=== PATIENT | female | born 1970 | race Caucasian/White ===

== ENCOUNTER 2018-10-08 08:47 | Emergency (ER) | payer BC, OTHER ==
[2018-10-08] MEDS ORDERED: Sodium Chloride 0.9% 1000 ML 1,000 ML IV STA (09:03)
[2018-10-08] MEDS ORDERED: Zofran 4 MG/2 ML VIAL IV ONE (09:03)
[2018-10-08] MEDS ORDERED: TORAdol 30 mg Injection IV ONE (09:03)
--- NOTE | 2018-10-08 09:09 | ERPHSYRPT ---
- History of Present Illness Time Seen by Provider: 10/08/18 08:57 Historian: patient Exam Limitations: no limitations Physician History: Pt started c/o LUQ abdominal pain, nausea, vomiting, and diarrhea. She denies fever, chills, bloody or black stool, or vomiting blood. She has a history of kidney stones. Timing/Duration: day(s) (4) Activities at Onset: none Quality: cramping, sharpness Abdominal Pain Onset Location: LUQ Pain Radiation: flank (left) Severity of Pain-Max: severe Severity of Pain-Current: severe Modifying Factors: Improves With: nothing Associated Symptoms: diarrhea, nausea, vomiting Previous symptoms: same symptoms as today Allergies/Adverse Reactions: codeine [Codeine] Allergy (Mild, Verified 10/08/18 12:00) Home Medications: Fluoxetine HCl [Prozac] DAILY 03/20/12 [History] Hydrocodone Bit/Acetaminophen [Vicodin Es 7.5-750 mg Tablet] TIDPRN 03/20/12 [ History] Lamotrigine [Lamictal] DAILY 03/20/12 [History] Levothyroxine Sodium 100 Mcg [Synthroid 100 Mcg] DAILY 03/20/12 [History] Hx Tetanus, Diphtheria Vaccination/Date Given: No Hx Influenza Vaccination/Date Given: No Hx Pneumococcal Vaccination/Date Given: No - Review of Systems Constitutional: No Symptoms Ears, Nose, & Throat: No Symptoms Respiratory: No Symptoms Cardiac: No Symptoms Genitourinary Symptoms: Flank Pain Musculoskeletal: No Symptoms Skin: No Symptoms Neurological: No Symptoms All Other Systems: Reviewed and Negative - Past Medical History Pertinent Past Medical History: Yes Endocrine Medical History: Hypothyroidism Musculoskeletal History: Other Psycho-Social History: Bipolar, Depression - Past Surgical History Past Surgical History: Yes Female Surgical History: Tubal Ligation - Social History Smoking Status: Current every day smoker Exposure to second hand smoke: Yes Drug Use: none Patient Lives Alone: No - Female History Hx Now: No - Nursing Vital Signs Nursing Vital Signs: Initial Vital Signs Temperature 102.7 F 10/08/18 09:04 Pulse Rate 118 H 10/08/18 09:04 Respiratory Rate 18 10/08/18 09:04 Blood Pressure 146/72 10/08/18 09:04 O2 Sat by Pulse Oximetry 99 10/08/18 09:04 Pain Scale Pain Intensity 0 - Physical Exam General Appearance: no apparent distress Eye Exam: eyes nml inspection Ears, Nose, Throat Exam: normal ENT inspection Neck Exam: normal inspection, non-tender Respiratory Exam: normal breath sounds, lungs clear Cardiovascular Exam: regular rate/rhythm, normal heart sounds, normal peripheral pulses Gastrointestinal/Abdomen Exam: soft, normal bowel sounds, tenderness (LUQ), No distention, No mass, No guarding, No ecchymosis, No pulsatile mass, No rebound, No organomegaly Back Exam: normal inspection, CVA tenderness (left), No vertebral tenderness Extremity Exam: normal inspection Neurologic Exam: alert, oriented x 3 Skin Exam: normal color, warm, dry, No rash SpO2 Interpretation: normal O2 Delivery: Room Air - Course Nursing assessment & vital signs reviewed: Yes - CT Exams Abdomen/Pelvis CT Interpretation: Tele-radiologist Report, Other (Enlargement of the left kidney with prominent left perinephric stranding, 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 with mild ureterectasisand suspected element of obstruction with no calculus distally.) Ordered Tests: Active Orders 24 hr Category Date Time Status IV Insertion STAT Care 10/08/18 09:03 Active ABDOMEN AND PELVIS W/0 CONTRAS [CT] Stat Exams 10/08/18 09:04 Taken CBC W DIFF Stat Lab 10/08/18 09:20 Completed CMP Stat Lab 10/08/18 09:20 Completed CULTURE,URINE Stat Lab 10/08/18 09:42 Received HCG,QUALITATIVE URINE Stat Lab 10/08/18 09:42 Completed LIPASE Stat Lab 10/08/18 09:20 Completed Lactic Acid Stat Lab 10/08/18 12:01 Completed Manual Differential NC Stat Lab 10/08/18 09:20 Completed UA W/RFX UR CULTURE Stat Lab 10/08/18 09:42 Completed Medication Summary Discontinued Medications Generic Name Dose Route Start Last Admin Trade Name Freq PRN Reason Stop Dose Admin Acetaminophen 1,000 mg 10/08/18 12:03 10/08/18 12:09 Tylenol Extra Strength 500 Mg PO 10/08/18 12:04 1,000 mg STAT STA Administration Acetaminophen Confirm 10/08/18 12:06 Tylenol Extra Strength 500 Mg Administered 10/08/18 12:07 Dose 1,000 mg .ROUTE .STK-MED ONE Sodium Chloride 1,000 mls @ 999 mls/hr 10/08/18 09:03 10/08/18 10:52 Sodium Chloride 0.9% 1000 Ml IV 10/08/18 10:03 Infused .Q1H1M STA Infusion Sodium Chloride Confirm 10/08/18 09:30 Sodium Chloride 0.9% 1000 Ml Administered 10/08/18 09:31 Dose 1,000 mls @ ud .ROUTE .STK-MED ONE Ceftriaxone Sodium/Dextrose 1 g in 50 mls @ 100 mls/hr 10/08/18 12:00 12:47 Rocephin 1 Gm-D5w 50 Ml Bag IV 10/08/18 12:29 Infused STAT STA Infusion Ceftriaxone Sodium/Dextrose Confirm 10/08/18 12:06 Rocephin 1 Gm-D5w 50 Ml Bag Administered 10/08/18 12:07 Dose 1 g in 50 mls @ ud IV .STK-MED ONE Ketorolac Tromethamine 30 mg 10/08/18 09:03 10/08/18 09:42 Toradol 30 Mg Injection IV 10/08/18 09:04 30 mg STAT ONE Administration Ketorolac Tromethamine Confirm 10/08/18 09:29 Toradol 30 Mg Injection Administered 10/08/18 09:30 Dose 30 mg .ROUTE .STK-MED ONE Ondansetron HCl 4 mg 10/08/18 09:03 10/08/18 09:42 Zofran 4 Mg/2 Ml Vial IV 10/08/18 09:04 4 mg STAT ONE Administration Ondansetron HCl Confirm 10/08/18 09:29 Zofran 4 Mg/2 Ml Vial Administered 10/08/18 09:30 Dose 4 mg .ROUTE .STK-MED ONE Lab/Rad Data: Laboratory Result Diagrams 10/08/18 09:20 10/08/18 09:20 Laboratory Results 10/08/18 10/08/18 10/08/18 Range/Units 12:01 09:42 09:42 WBC (4.0-10.5) K/mm3 RBC (4.1-5.4) M/mm3 Hgb (12.0-16.0) gm/dl Hct (35-47) % MCV (78-100) fl MCH (26-32) pg MCHC (32-36) g/dl RDW (11.5-14.0) % Plt Count (150-450) K/mm3 MPV (6-9.5) fl Segmented Neutrophils (36.0-66.0) % Lymphocytes (Manual) (24-44) % Monocytes (Manual) (0.0-12.0) % Eosinophils (Manual) (0.00-3.0) % Platelet Estimate (NORMAL) RBC Morphology Sodium (137-145) mmol/L Potassium (3.5-5.1) mmol/L Chloride (98-107) mmol/L Carbon Dioxide (22-30) mmol/L Anion Gap (5-15) MEQ/L BUN (7-17) mg/dL Creatinine (0.52-1.04) mg/dL Estimated GFR ML/MIN Glucose (74-106) mg/dL Lactic Acid 1.6 (0.4-2.0) Calcium (8.4-10.2) mg/dL Total Bilirubin (0.2-1.3) mg/dL AST (14-36) U/L ALT (0-35) U/L Alkaline Phosphatase (38-126) U/L Serum Total Protein (6.3-8.2) g/dL Albumin (3.5-5.0) g/dL Lipase (23-300) U/L Urine Color CURT (YELLOW) Urine Appearance CLOUDY (CLEAR) Urine pH 5.0 (5-6) Ur Specific [place] 1.013 (1.005-1.025) Urine Protein 100 (Negative) Urine Ketones NEGATIVE (NEGATIVE) Urine Blood MODERATE (0-5) Jason/ul Urine Nitrite NEGATIVE (NEGATIVE) Urine Bilirubin NEGATIVE (NEGATIVE) Urine Urobilinogen 2 (0-1) mg/dL Ur Leukocyte Esterase MODERATE (NEGATIVE) Urine WBC (Auto) >100 (0-5) /HPF Urine RBC (Auto) 11-15 (0-2) /HPF U Epithel Cells (Auto) RARE (FEW) /HPF Urine Bacteria (Auto) NONE (NEGATIVE) /HPF Urine Mucus (Auto) SLIGHT (NEGATIVE) /HPF Urine Culture Reflexed YES (NO) Urine Glucose NEGATIVE (NEGATIVE) mg/dL Urine HCG, Qual NEGATIVE (Negative) 10/08/18 10/08/18 Range/Units 09:20 09:20 WBC 15.9 H (4.0-10.5) K/mm3 RBC 4.55 (4.1-5.4) M/mm3 Hgb 12.9 (12.0-16.0) gm/dl Hct 39.1 (35-47) % MCV 85.9 (78-100) fl MCH 28.4 (26-32) pg MCHC 33.0 (32-36) g/dl RDW 13.2 (11.5-14.0) % Plt Count 323 (150-450) K/mm3 MPV 9.8 H (6-9.5) fl Segmented Neutrophils 65 (36.0-66.0) % Lymphocytes (Manual) 25 (24-44) % Monocytes (Manual) 9 (0.0-12.0) % Eosinophils (Manual) 1 (0.00-3.0) % Platelet Estimate NORMAL (NORMAL) RBC Morphology NORMAL Sodium 137 (137-145) mmol/L Potassium 3.6 (3.5-5.1) mmol/L Chloride 103 (98-107) mmol/L Carbon Dioxide 23 (22-30) mmol/L Anion Gap 14.5 (5-15) MEQ/L BUN 14 (7-17) mg/dL Creatinine 0.83 (0.52-1.04) mg/dL Estimated GFR > 60.0 ML/MIN Glucose 109 H (74-106) mg/dL Lactic Acid (0.4-2.0) Calcium 9.5 (8.4-10.2) mg/dL Total Bilirubin 1.10 (0.2-1.3) mg/dL AST 37 H (14-36) U/L ALT 44 H (0-35) U/L Alkaline Phosphatase 139 H (38-126) U/L Serum Total Protein 8.2 (6.3-8.2) g/dL Albumin 4.3 (3.5-5.0) g/dL Lipase 33 (23-300) U/L Urine Color (YELLOW) Urine Appearance (CLEAR) Urine pH (5-6) Ur Specific [place] (1.005-1.025) Urine Protein (Negative) Urine Ketones (NEGATIVE) Urine Blood (0-5) Jason/ul Urine Nitrite (NEGATIVE) Urine Bilirubin (NEGATIVE) Urine Urobilinogen (0-1) mg/dL Ur Leukocyte Esterase (NEGATIVE) Urine WBC (Auto) (0-5) /HPF Urine RBC (Auto) (0-2) /HPF U Epithel Cells (Auto) (FEW) /HPF Urine Bacteria (Auto) (NEGATIVE) /HPF Urine Mucus (Auto) (NEGATIVE) /HPF Urine Culture Reflexed (NO) Urine Glucose (NEGATIVE) mg/dL Urine HCG, Qual (Negative) - Progress Progress: improved Progress Note: 10/08/18 12:24 Pt states, she feels much better, nausea and pain resolved, temp: 100.8 F, she was given saline bolus, and started on iv Rocephine, PO Tylenol, we called Dr Prince, Urologist in [place], discussed her findings and current condition with him, he agreed to discharge her home, and start Keflex PO, to rest x 2-3 days, and drink plenty of fluids, and follow up with him next week. Counseled pt/family regarding: lab results, diagnosis, need for follow-up (with Dr Prince, Urologist) - Departure Departure Disposition: Home Clinical Impression: Pyelonephritis Condition: Stable Critical Care Time: No Referrals: JAZMIN AYALA FNP [Primary Care Provider] - Instructions: Urinary Tract Infection, Adult (DC), Kidney Infection (DC) Additional Instructions: Rest x 2-3 days, drink plenty of fluids, and follow up with Dr Prince, Urologist next week in [place] (tel: [phone])m return if severe pain, vomiting, or fever> 102 F! Prescriptions: Ondansetron ODT 4 MG [Zofran Odt 4 mg] 4 mg PO Q6H PRN PRN #10 tab.rapdis PRN Reason: Nausea/Vomiting Cephalexin Mh 500 mg [Keflex 500 mg] 500 mg PO Q6H 7 Days #28 capsule
[2018-10-08 09:27] LABS: Hematocrit 39.1 % (35-47); Hemoglobin 12.9 gm/dl (12.0-16.0); Mean Cell Volume 85.9 fl (78-100); Mean Corpuscular Hemoglobin 28.4 pg (26-32); Mean Platelet Volume 9.8 fl (6-9.5); Platelet Count 323 K/mm3 (150-450); Red Blood Count 4.55 M/mm3 (4.1-5.4); Red Cell Distribution Width 13.2 % (11.5-14.0); White Blood Count 15.9 K/mm3 (4.0-10.5)
[2018-10-08] MEDS ORDERED: Zofran 4 MG/2 ML VIAL ONE (09:29)
[2018-10-08] MEDS ORDERED: TORAdol 30 mg Injection ONE (09:29)
[2018-10-08] MEDS ORDERED: Sodium Chloride 0.9% 1000 ML 1,000 ML ONE (09:30)
[2018-10-08 09:38] LABS: ALBUMIN 4.3 g/dL (3.5-5.0); ALKALINE PHOSPHATASE 139 U/L (38-126); ANION GAP 14.5 MEQ/L (5-15); BLOOD UREA NITROGEN 14 mg/dL (7-17); CHLORIDE 103 mmol/L (98-107); Calcium 9.5 mg/dL (8.4-10.2); Carbon Dioxide 23 mmol/L (22-30); Creatinine 1 0.83 mg/dL (0.52-1.04); Glucose 109 mg/dL (74-106); LIPASE 33 U/L (23-300); Potassium 3.6 mmol/L (3.5-5.1); SGOT/AST 37 U/L (14-36); SGPT/ALT 44 U/L (0-35); SODIUM 137 mmol/L (137-145); Total Protein 8.2 g/dL (6.3-8.2)
[2018-10-08 09:51] LABS: Appearance CLOUDY (CLEAR); Bilirubin NEGATIVE (NEGATIVE); Blood MODERATE Ery/ul (0-5); Epithelial Cells RARE /HPF (FEW); Glucose NEGATIVE (NEGATIVE); Ketones NEGATIVE (NEGATIVE); Leukocyte Esterase MODERATE (NEGATIVE); Mucus SLIGHT /HPF (NEGATIVE); Nitrite NEGATIVE (NEGATIVE); Protein,Urine Dip 100 (Negative); Specific Gravity 1.013 (1.005-1.025); Urobilinogen 2 mg/dL (0-1); WBC >100 /HPF (0-5)
[2018-10-08 10:54] VITALS: BP 104/76; O2SAT 98
[2018-10-08 11:10] LABS: Eosinophil 1 % (0.00-3.0); Lymphocytes 25 % (24-44); Monocyte 9 % (0.0-12.0); Neutrophils 65 % (36.0-66.0); Total Cells Counted 100
[2018-10-08 11:11] LABS: Platelet Estimate NORMAL (NORMAL)
[2018-10-08] MEDS ORDERED: ROCEPHIN 1 Gm-D5w 50 ml Bag** 1 G/50 ML IVPB IV STA (12:00)
[2018-10-08] MEDS ORDERED: TYLENOL EXTRA STRENGTH 500 MG PO STA (12:03)
[2018-10-08 12:04] VITALS: PULSE 75
[2018-10-08] MEDS ORDERED: TYLENOL EXTRA STRENGTH 500 MG ONE (12:06)
[2018-10-08] MEDS ORDERED: ROCEPHIN 1 Gm-D5w 50 ml Bag** 1 G/50 ML IVPB IV ONE (12:06)
--- NOTE | 2018-10-08 19:34 | XRAY ---
Indication: Left upper quadrant pain. History kidney stone. Multiple contiguous axial images obtained through the abdomen and pelvis without contrast as ordered. Comparison: None Lung bases demonstrates minimal bibasilar dependent atelectasis. No infiltrate or effusion. Heart is not enlarged. Noncontrasted stomach and bowel loops appear nonobstructed. Normal appendix. Left kidney appears edematous with perinephric stranding and prominent duplicated ureters to the level of the bladder but no calculus. Findings can be seen from recent passage of calculus. Inflammatory/infectious process not completely excluded. No free fluid/air. Remaining liver, gallbladder, pancreas, spleen, adrenal glands, right kidney, right ureter, bladder, uterus, and aorta appear unremarkable for noncontrast exam. Osseous structures intact with minimal degenerative changes throughout the spine. Impression: 1. 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 Rule out recent passage of calculus. Inflammatory/infectious process not completely excluded. 2. Remaining CT abdomen/pelvis without contrast exam is negative. Comment: Preliminary interpretation was made by [facility]. No discrepancy. CTDI 22.02
== END 2018-10-08 12:55 | disposition home or self-care (01) ==
LOC: ED 08:47
DX: N12 Tubulo-interstitial nephritis, not specified as acute or chronic (principal); E03.9 Hypothyroidism, unspecified; F31.9 Bipolar disorder, unspecified
CPT/HCPCS: 36415; 74176; 80053; 81001; 83605; 83690; 84703; 85025; 87077; 87086; 87186; 96360; 96365; 96374; 96375; 99284; J0696; J1885; J2405; A9270-GY

== ENCOUNTER 2020-03-07 11:21 | Emergency (ER) | payer SELFPAY ==
[2020-03-07] MEDS ORDERED: MORPHINE SULFATE 4 MG INJ ONE (11:27)
[2020-03-07 11:28] VITALS: O2SAT 98
--- NOTE | 2020-03-07 11:35 | ERPHSYRPT ---
- History of Present Illness Time Seen by Provider: 03/07/20 11:28 Historian: patient Exam Limitations: no limitations Physician History: Patient is a 49-year-old female presents to our ED via private vehicle for evaluation of right arm pain. Patient states that she was at home when she suddenly turned her head and developed pain radiating down her right arm from her neck down to her fingers.. Patient described the pain as a shock like sensation. Patient has a history of chronic neck pain due to trauma 3 years ago. No chest pain or shortness of breath. No nausea vomiting or diaphoresis. Symptoms are moderate to severe in intensity. Patient has a history of PTSD and anxiety. Patient was very worked up as she thought she was going to . No associated fever. Patient states she vapes marijuana. She denies any other drug use. Patient voices no other complaints or concerns at this time. Timing/Duration: today Activities at Onset: activity Quality: burning Location: other (Arm and back near scapula.) Severity of Pain-Max: severe Severity of Pain-Current: moderate Modifying Factors: Improves With: other (Rotation of patient's head towards the right reproduces symptoms.) Associated Symptoms: nausea, No vomiting, No cough Prior Chest Pain/Cardiac Workup: no prior chest pain Nitro Today/Relief: no nitro taken today Aspirin Treatment Today: 81 mg x 4 Allergies/Adverse Reactions: codeine [Codeine] Allergy (Mild, Verified 03/07/20 11:47) Home Medications: Fluoxetine HCl [Prozac] DAILY 03/20/12 [History] Hydrocodone Bit/Acetaminophen [Vicodin Es 7.5-750 mg Tablet] TIDPRN 03/20/12 [History] Lamotrigine [Lamictal] DAILY 03/20/12 [History] Levothyroxine Sodium 100 Mcg [Synthroid 100 Mcg] DAILY 03/20/12 [History] Hx Tetanus, Diphtheria Vaccination/Date Given: No Hx Influenza Vaccination/Date Given: No Hx Pneumococcal Vaccination/Date Given: No - Review of Systems Constitutional: No Symptoms, No Fever, No Chills Eyes: No Symptoms Ears, Nose, & Throat: No Symptoms Respiratory: No Symptoms, No Cough, No Dyspnea Cardiac: No Symptoms, No Chest Pain, No Edema, No Syncope Abdominal/Gastrointestinal: No Symptoms, No Abdominal Pain, No Nausea, No Vomiting, No Diarrhea Genitourinary Symptoms: No Symptoms, No Dysuria Musculoskeletal: No Symptoms, No Back Pain, No Neck Pain Skin: No Symptoms, No Rash Neurological: No Symptoms, No Dizziness, No Focal Weakness, No Sensory Changes Psychological: No Symptoms Endocrine: No Symptoms Hematologic/Lymphatic: No Symptoms Immunological/Allergic: No Symptoms All Other Systems: Reviewed and Negative - Past Medical History Pertinent Past Medical History: Yes Endocrine Medical History: Hypothyroidism Musculoskeletal History: Other Psycho-Social History: Bipolar, Depression - Past Surgical History Past Surgical History: Yes Female Surgical History: Tubal Ligation - Social History Smoking Status: Current every day smoker Exposure to second hand smoke: Yes Drug Use: none Patient Lives Alone: No - Female History Hx Now: No - Nursing Vital Signs Nursing Vital Signs: Initial Vital Signs Temperature 98.0 F 03/07/20 11:24 Pulse Rate 140 H 03/07/20 11:24 Respiratory Rate 28 H 03/07/20 11:24 Blood Pressure 154/105 03/07/20 11:24 O2 Sat by Pulse Oximetry 98 03/07/20 11:24 Pain Scale Pain Intensity 8 - Physical Exam General Appearance: no apparent distress, alert Eye Exam: PERRL/EOMI, eyes nml inspection Ears, Nose, Throat Exam: normal ENT inspection, moist mucous membranes Neck Exam: normal inspection, non-tender, supple, full range of motion Respiratory Exam: normal breath sounds, lungs clear, No respiratory distress Cardiovascular Exam: regular rate/rhythm, normal heart sounds Gastrointestinal/Abdomen Exam: soft, No tenderness, No mass Back Exam: normal inspection, No CVA tenderness, No vertebral tenderness Extremity Exam: normal inspection, normal range of motion Neurologic Exam: alert, oriented x 3, cooperative, normal mood/affect, sensation nml, No motor deficits Skin Exam: normal color, warm, dry SpO2 Interpretation: normal SpO2: 98 O2 Delivery: Room Air - Course Nursing assessment & vital signs reviewed: Yes EKG Interpreted by Me: RATE ([id number]), Sinus Tach, NORMAL AXIS, NORMAL INTERVALS - Radiology Exams Chest X-ray Interpretation: Teleradiologist Report (No acute cardiopulmonary disease.) - CT Exams Chest CT Interpretation: Tele-radiologist Report (Large PE, small hiatal hernia, calcified granuloma, hepatic steatosis, thoracic spine arthritis) Cervical Spine CT Interpretation: Tele-radiologist Report (No acute cervical spine fracture subluxation or prevertebral soft tissue swelling mild cervical spondylosis is seen there is some neuroforaminal narrowing cervical canal at C5-C6 and C6-C7 appears relatively diminished suggesting some mild central canal stenosis at these levels) Ordered Tests: Active Orders 24 hr Category Date Time Status ACCUCHECK [Accucheck] STAT Care 03/07/20 11:33 Active Electrician Second STAT Care 03/07/20 11:26 Active EKG-ER Only STAT Care 03/07/20 11:24 Active IV Insertion STAT Care 03/07/20 11:24 Active Pulse Oximetry (ED) STAT Care 03/07/20 11:24 Active CERVICAL SPINE WO CONTRAST [CT] Stat Exams 03/07/20 12:06 Completed CHEST 1 VIEW (PORTABLE) Stat Exams 03/07/20 11:25 Completed CHEST WITH CONTRAST [CT] Stat Exams 03/07/20 12:05 Completed BLOOD CULTURE Stat Lab 03/07/20 17:18 Ordered CBC W DIFF Stat Lab 03/07/20 11:20 Completed CMP Stat Lab 03/07/20 11:20 Completed D-DIMER QUANTITATIVE Stat Lab 03/07/20 11:20 Completed ETHYL ALCOHOL Stat Lab 03/07/20 11:20 Completed MAGNESIUM Stat Lab 03/07/20 11:20 Completed Manual Differential NC Stat Lab 03/07/20 11:20 Completed NT PRO BNP Stat Lab 03/07/20 11:20 Completed TROPONIN Q3H Lab 03/07/20 11:20 Completed TROPONIN Q3H Lab 03/07/20 14:45 Completed TROPONIN Q3H Lab 03/07/20 17:30 Ordered TROPONIN Q3H Lab 03/07/20 20:30 Ordered TROPONIN Q3H Lab 03/07/20 23:30 Ordered UA W/RFX UR CULTURE Stat Lab 03/07/20 13:30 Completed Urine Triage Profile Stat Lab 03/07/20 Completed Medication Summary Discontinued Medications Generic Name Dose Route Start Last Admin Trade Name Freq PRN Reason Stop Dose Admin Dexamethasone Sodium Phosphate 10 mg 03/07/20 11:47 03/07/20 11:52 Decadron 10mg Inj. PO 03/07/20 11:48 10 mg STAT ONE Administration Dexamethasone Sodium Phosphate Confirm 03/07/20 11:52 Decadron 10mg Inj. Administered 03/07/20 11:53 Dose 10 mg .ROUTE .STK-MED ONE Ketorolac Tromethamine 30 mg 03/07/20 12:17 03/07/20 12:25 Toradol 30 Mg Injection IV 03/07/20 12:18 30 mg STAT ONE Administration Ketorolac Tromethamine Confirm 03/07/20 12:24 Toradol 30 Mg Injection Administered 03/07/20 12:25 Dose 30 mg .ROUTE .STK-MED ONE Lorazepam 1 mg 03/07/20 12:59 03/07/20 13:01 Ativan 2 Mg/1 Ml Vial IV 03/07/20 13:00 1 mg STAT ONE Administration Lorazepam Confirm 03/07/20 13:01 Ativan 2 Mg/1 Ml Vial Administered 03/07/20 13:02 Dose 2 mg .ROUTE .STK-MED ONE Morphine Sulfate Confirm 03/07/20 11:27 Morphine Sulfate 4 Mg Inj Administered 03/07/20 11:28 Dose 4 mg .ROUTE .STK-MED ONE Morphine Sulfate 4 mg 03/07/20 11:52 03/07/20 11:55 Morphine Sulfate 4 Mg Inj IV 03/07/20 11:53 4 mg STAT ONE Administration Lab/Rad Data: Laboratory Result Diagrams 03/07/20 11:20 03/07/20 11:20 Laboratory Results 03/07/20 03/07/20 03/07/20 Range/Units Unknown 14:45 13:30 WBC (4.0-10.5) K/mm3 RBC (4.1-5.4) M/mm3 Hgb (12.0-16.0) gm/dl Hct (35-47) % MCV (78-100) fl MCH (26-32) pg MCHC (32-36) g/dl RDW (11.5-14.0) % Plt Count (150-450) K/mm3 MPV (7.5-11.0) fl Segmented Neutrophils (36.0-66.0) % Band Neutrophils (0.0-2.0) % Lymphocytes (Manual) (24-44) % Monocytes (Manual) (0.0-12.0) % Eosinophils (Manual) (0.00-3.0) % Toxic Granulation Platelet Estimate (NORMAL) RBC Morphology D-Dimer (215-500) ng/mL Sodium (137-145) mmol/L Potassium (3.5-5.1) mmol/L Chloride (98-107) mmol/L Carbon Dioxide (22-30) mmol/L Anion Gap (5-15) MEQ/L BUN (7-17) mg/dL Creatinine (0.52-1.04) mg/dL Estimated GFR ML/MIN Glucose (74-106) mg/dL Calcium (8.4-10.2) mg/dL Magnesium (1.6-2.3) mg/dL Total Bilirubin (0.2-1.3) mg/dL AST (14-36) U/L ALT (0-35) U/L Alkaline Phosphatase (38-126) U/L Troponin I < 0.012 (0.000-0.034) ng/mL NT-Pro-B Natriuret Pep (0-450) pg/mL Serum Total Protein (6.3-8.2) g/dL Albumin (3.5-5.0) g/dL Urine Color YELLOW (YELLOW) Urine Appearance SLIGHTLY CLOUDY (CLEAR) Urine pH 5.0 (5-6) Ur Specific Mcdonald 1.023 (1.005-1.025) Urine Protein NEGATIVE (Negative) Urine Ketones NEGATIVE (NEGATIVE) Urine Blood NEGATIVE (0-5) Jason/ul Urine Nitrite NEGATIVE (NEGATIVE) Urine Bilirubin NEGATIVE (NEGATIVE) Urine Urobilinogen NEGATIVE (0-1) mg/dL Ur Leukocyte Esterase NEGATIVE (NEGATIVE) Urine WBC (Auto) NONE (0-5) /HPF Urine RBC (Auto) NONE (0-2) /HPF U Epithel Cells (Auto) RARE (FEW) /HPF Urine Bacteria (Auto) NONE (NEGATIVE) /HPF Urine Mucus (Auto) SLIGHT (NEGATIVE) /HPF Urine Culture Reflexed NO (NO) Urine Glucose NEGATIVE (NEGATIVE) mg/dL Urine Opiates Level POSITIVE (NEGATIVE) Ur Methadone NEGATIVE (NEGATIVE) Urine Barbiturates NEGATIVE (NEGATIVE) Ur Phencyclidine (PCP) NEGATIVE (NEGATIVE) Urine Amphetamine NEGATIVE (NEGATIVE) U Benzodiazepine Level NEGATIVE (NEGATIVE) Urine Cocaine NEGATIVE (NEGATIVE) Urine Marijuana (THC) POSITIVE (NEGATIVE) Ethyl Alcohol (0-10) mg/dL 03/07/20 03/07/20 03/07/20 Range/Units 11:20 11:20 11:20 WBC (4.0-10.5) K/mm3 RBC (4.1-5.4) M/mm3 Hgb (12.0-16.0) gm/dl Hct (35-47) % MCV (78-100) fl MCH (26-32) pg MCHC (32-36) g/dl RDW (11.5-14.0) % Plt Count (150-450) K/mm3 MPV (7.5-11.0) fl Segmented Neutrophils (36.0-66.0) % Band Neutrophils (0.0-2.0) % Lymphocytes (Manual) (24-44) % Monocytes (Manual) (0.0-12.0) % Eosinophils (Manual) (0.00-3.0) % Toxic Granulation Platelet Estimate (NORMAL) RBC Morphology D-Dimer 603 H* (215-500) ng/mL Sodium 139 (137-145) mmol/L Potassium 3.9 (3.5-5.1) mmol/L Chloride 103 (98-107) mmol/L Carbon Dioxide 23 (22-30) mmol/L Anion Gap 15.8 H (5-15) MEQ/L BUN 13 (7-17) mg/dL Creatinine 0.79 (0.52-1.04) mg/dL Estimated GFR > 60.0 ML/MIN Glucose 177 H (74-106) mg/dL Calcium 10.0 (8.4-10.2) mg/dL Magnesium 2.0 (1.6-2.3) mg/dL Total Bilirubin 0.60 (0.2-1.3) mg/dL AST 28 (14-36) U/L ALT 29 (0-35) U/L Alkaline Phosphatase 97 (38-126) U/L Troponin I < 0.012 (0.000-0.034) ng/mL NT-Pro-B Natriuret Pep 32.9 (0-450) pg/mL Serum Total Protein 8.6 H (6.3-8.2) g/dL Albumin 4.9 (3.5-5.0) g/dL Urine Color (YELLOW) Urine Appearance (CLEAR) Urine pH (5-6) Ur Specific Mcdonald (1.005-1.025) Urine Protein (Negative) Urine Ketones (NEGATIVE) Urine Blood (0-5) Jason/ul Urine Nitrite (NEGATIVE) Urine Bilirubin (NEGATIVE) Urine Urobilinogen (0-1) mg/dL Ur Leukocyte Esterase (NEGATIVE) Urine WBC (Auto) (0-5) /HPF Urine RBC (Auto) (0-2) /HPF U Epithel Cells (Auto) (FEW) /HPF Urine Bacteria (Auto) (NEGATIVE) /HPF Urine Mucus (Auto) (NEGATIVE) /HPF Urine Culture Reflexed (NO) Urine Glucose (NEGATIVE) mg/dL Urine Opiates Level (NEGATIVE) Ur Methadone (NEGATIVE) Urine Barbiturates (NEGATIVE) Ur Phencyclidine (PCP) (NEGATIVE) Urine Amphetamine (NEGATIVE) U Benzodiazepine Level (NEGATIVE) Urine Cocaine (NEGATIVE) Urine Marijuana (THC) (NEGATIVE) Ethyl Alcohol 10 (0-10) mg/dL 03/07/20 Range/Units 11:20 WBC 19.4 H (4.0-10.5) K/mm3 RBC 5.48 H (4.1-5.4) M/mm3 Hgb 15.6 (12.0-16.0) gm/dl Hct 47.1 H (35-47) % MCV 85.9 (78-100) fl MCH 28.5 (26-32) pg MCHC 33.1 (32-36) g/dl RDW 13.0 (11.5-14.0) % Plt Count 502 H (150-450) K/mm3 MPV 9.9 (7.5-11.0) fl Segmented Neutrophils 69 H (36.0-66.0) % Band Neutrophils 1 (0.0-2.0) % Lymphocytes (Manual) 25 (24-44) % Monocytes (Manual) 1 (0.0-12.0) % Eosinophils (Manual) 4 H (0.00-3.0) % Toxic Granulation 1+ Platelet Estimate INCREASED (NORMAL) RBC Morphology NORMAL D-Dimer (215-500) ng/mL Sodium (137-145) mmol/L Potassium (3.5-5.1) mmol/L Chloride (98-107) mmol/L Carbon Dioxide (22-30) mmol/L Anion Gap (5-15) MEQ/L BUN (7-17) mg/dL Creatinine (0.52-1.04) mg/dL Estimated GFR ML/MIN Glucose (74-106) mg/dL Calcium (8.4-10.2) mg/dL Magnesium (1.6-2.3) mg/dL Total Bilirubin (0.2-1.3) mg/dL AST (14-36) U/L ALT (0-35) U/L Alkaline Phosphatase (38-126) U/L Troponin I (0.000-0.034) ng/mL NT-Pro-B Natriuret Pep (0-450) pg/mL Serum Total Protein (6.3-8.2) g/dL Albumin (3.5-5.0) g/dL Urine Color (YELLOW) Urine Appearance (CLEAR) Urine pH (5-6) Ur Specific Mcdonald (1.005-1.025) Urine Protein (Negative) Urine Ketones (NEGATIVE) Urine Blood (0-5) Jason/ul Urine Nitrite (NEGATIVE) Urine Bilirubin (NEGATIVE) Urine Urobilinogen (0-1) mg/dL Ur Leukocyte Esterase (NEGATIVE) Urine WBC (Auto) (0-5) /HPF Urine RBC (Auto) (0-2) /HPF U Epithel Cells (Auto) (FEW) /HPF Urine Bacteria (Auto) (NEGATIVE) /HPF Urine Mucus (Auto) (NEGATIVE) /HPF Urine Culture Reflexed (NO) Urine Glucose (NEGATIVE) mg/dL Urine Opiates Level (NEGATIVE) Ur Methadone (NEGATIVE) Urine Barbiturates (NEGATIVE) Ur Phencyclidine (PCP) (NEGATIVE) Urine Amphetamine (NEGATIVE) U Benzodiazepine Level (NEGATIVE) Urine Cocaine (NEGATIVE) Urine Marijuana (THC) (NEGATIVE) Ethyl Alcohol (0-10) mg/dL - Progress Progress: improved Air Movement: good Progress Note: 03/07/20 17:14 Patient reassessed. Pain improved. Patient has a leukocytosis. Leukocytosis present for unclear reasons. Patient has no fever. Blood cultures obtained and pending. Work-up essentially negative at this point. Troponin negative x2. CTA negative for PE. Patient's pain appears to be musculoskeletal. Pain worse with overhead flexion of her right shoulder and rotation of her head to the right. No signs for septic joint. No cellulitis. No lymphadenopathy. Patient declined a shoulder sling. Extremity neurovascular intact distally. Patient agrees to follow-up with her primary care doctor within 48 hours for reevaluation. 03/07/20 17:18 03/07/20 17:21 03/07/20 17:23 Blood Culture(s) Obtained: No Antibiotics given: No Counseled pt/family regarding: lab results, diagnosis, need for follow-up, rad results - Departure Departure Disposition: Home Clinical Impression: Chest pain, Arm pain, Cervical radiculopathy, Leukocytosis, Thrombocytosis, Hiatal hernia, Lung granuloma, Hepatic steatosis, Arthritis of spine Condition: Stable Critical Care Time: No Referrals: JAZMIN AYALA FNP [Primary Care Provider] - Additional Instructions: Discharge/Care Plan DAY,CAMI SALAS was seen on 03/07/20 in the Emergency Room. The patient was counseled regarding Diagnosis,Lab results, Imaging studies, need for follow up and when to return to the Emergency Room. Prescriptions given: Discharge Note I have spoken with the patient and/or caregivers. I have explained the patient's condition, diagnosis and treatment plan based on the information available to me at this time. I have answered the patient's and/or caregiver's questions and addressed any concerns. The patient and/or caregivers have as good understanding of the patient's diagnosis, condition and treatment plan as can be expected at this point. The vital signs have been stable. The patient's condition is stable and appropriate for discharge from the emergency department. The patient will pursue further outpatient evaluation with the primary care physician or other designated or consulting physician as outlined in the discharge instructions. The patient and/or caregivers are agreeable to this plan of care and follow-up instructions have been explained in detail. The patient and/or caregivers have received these instruction. The patient/and or caregivers are aware that any significant change in condition or worsening of symptoms should prompt an immediate return to this or the closest emergency department or call 911. Prescriptions: Ketorolac Tromethamine [Toradol] 10 mg PO TID 5 Days #15 tablet
[2020-03-07 11:41] LABS: Hematocrit 47.1 % (35-47); Hemoglobin 15.6 gm/dl (12.0-16.0); Mean Cell Volume 85.9 fl (78-100); Mean Corpuscular Hemoglobin 28.5 pg (26-32); Mean Corpuscular Hgb Concent. 33.1 g/dl (32-36); Mean Platelet Volume 9.9 fl (7.5-11.0); Platelet Count 502 K/mm3 (150-450); Red Blood Count 5.48 M/mm3 (4.1-5.4); White Blood Count 19.4 K/mm3 (4.0-10.5)
[2020-03-07] MEDS ORDERED: DECADRON 10MG INJ. PO ONE (11:47)
[2020-03-07] MEDS ORDERED: MORPHINE SULFATE 4 MG INJ IV ONE (11:52)
[2020-03-07] MEDS ORDERED: DECADRON 10MG INJ. ONE (11:52)
[2020-03-07 12:02] LABS: ALBUMIN 4.9 g/dL (3.5-5.0); ALKALINE PHOSPHATASE 97 U/L (38-126); ANION GAP 15.8 MEQ/L (5-15); BLOOD UREA NITROGEN 13 mg/dL (7-17); CHLORIDE 103 mmol/L (98-107); Carbon Dioxide 23 mmol/L (22-30); Creatinine 1 0.79 mg/dL (0.52-1.04); EST GLOMERULAR FILTRATION RATE > 60.0 ML/MIN; ETHYL ALCOHOL 10 mg/dL (0-10); Glucose 177 mg/dL (74-106); NT PRO BNP 32.9 pg/mL (0-450); Potassium 3.9 mmol/L (3.5-5.1); SGOT/AST 28 U/L (14-36); SGPT/ALT 29 U/L (0-35); SODIUM 139 mmol/L (137-145); Total Protein 8.6 g/dL (6.3-8.2)
--- NOTE | 2020-03-07 12:14 | XRAY ---
Exam: AP upright portable chest film from 03/07/2020. Comparison: None. Indication: Chest pain; right-sided epigastric pain, history of gallstones. Findings: The transverse heart size is normal. The eileen and mediastinal structures appear unremarkable. Inflation of the lungs is average. A tiny amount of linear pleural reaction is seen within the lateral aspect of the minor fissure on the right. No air space infiltrates, vascular congestion, pneumothorax, or pleural fluid is seen. No acute osseous process is seen. Impression: 1. No acute cardiopulmonary disease is seen.
[2020-03-07] MEDS ORDERED: TORAdol 30 mg Injection IV ONE (12:17)
[2020-03-07] MEDS ORDERED: TORAdol 30 mg Injection ONE (12:24)
[2020-03-07 12:26] LABS: BAND 1 % (0.0-2.0); Eosinophil 4 % (0.00-3.0); Lymphocytes 25 % (24-44); Monocyte 1 % (0.0-12.0); Neutrophils 69 % (36.0-66.0); Platelet Estimate INCREASED (NORMAL); Total Cells Counted 100; Toxic Granulation 1+
[2020-03-07] MEDS ORDERED: Ativan 2 MG/1 ML VIAL IV ONE (12:59)
[2020-03-07] MEDS ORDERED: Ativan 2 MG/1 ML VIAL ONE (13:01)
[2020-03-07 13:45] LABS: Appearance SLIGHTLY CLOUDY (CLEAR); Bilirubin NEGATIVE (NEGATIVE); Blood NEGATIVE Ery/ul (0-5); Epithelial Cells RARE /HPF (FEW); Glucose NEGATIVE (NEGATIVE); Ketones NEGATIVE (NEGATIVE); Leukocyte Esterase NEGATIVE (NEGATIVE); Mucus SLIGHT /HPF (NEGATIVE); Nitrite NEGATIVE (NEGATIVE); Protein,Urine Dip NEGATIVE (Negative); Specific Gravity 1.023 (1.005-1.025); Urobilinogen NEGATIVE mg/dL (0-1)
[2020-03-07 13:50] LABS: Amphetamine,Urine NEGATIVE (NEGATIVE); Barbiturate,Urine NEGATIVE (NEGATIVE); Benzodiazepine,Urine NEGATIVE (NEGATIVE); Cocaine,Urine NEGATIVE (NEGATIVE); Methadone,Urine NEGATIVE (NEGATIVE); Opiate,Urine POSITIVE (NEGATIVE); PCP,Urine NEGATIVE (NEGATIVE); THC,Urine POSITIVE (NEGATIVE)
--- NOTE | 2020-03-07 14:44 | XRAY ---
Exam: CT of the chest with IV contrast per PE protocol from 03/07/2020. CTDI: 27.07 mGy Comparison: AP portable chest film from earlier today. Indication: Rule out pulmonary embolism. Elevated d-dimer of 603. Right-sided chest pain and right-sided neck and arm pain. Technique: Post-IV contrast axial images were obtained through the chest using 80 cc of [id number] contrast material per PE protocol. Reconstructed coronal and sagittal images were created and reviewed. Findings: Unfortunately, the timing of the imaging with respect to the contrast administration appears to be off with most of the contrast seen within the systemic circulation on the left. I can tell that there is no large embolus within the pulmonary artery trunk or right and left main pulmonary arteries, but other lobar and segmental branches are insufficiently opacified to make further assessment. The thoracic aorta is well-opacified and reveals no aneurysm or dissection. No enlarged mediastinal or perihilar lymph nodes are seen. There is a small hiatal hernia present. The peripheral lungs reveals a calcified granuloma within the posterior aspect of the left upper lobe. A thin oblique linear strand of atelectasis or scarring is seen at the anterior left lung base on axial image #56. No air space infiltrates, pneumothorax, or pleural fluid is seen. No significant interstitial lung disease or suspicious soft tissue lung nodules are seen. The distal trachea and major central branching bronchi appear open. Hepatic steatosis is evident. The adrenal glands appear grossly unremarkable. Abundant fluid/secretions are seen within the stomach lumen. The skeleton reveals no acute fracture or aggressive bone lesion. Some degenerative changes are seen within the thoracic spine. I note some focal sclerosis adjacent to the inferior vertebral endplate of T7 on sagittal image #96 and axial image #78. Some vacuum phenomena is seen within the joint space between the manubrium and body of the sternum on axial image #96. Impression: 1. Unfortunately, the pulmonary arteries are not strongly opacified on this exam despite using the smart prep. I see no gross pulmonary embolus within the main pulmonary artery trunk or right or left main pulmonary arteries. However, evaluation of the lobar and segmental branches cannot be adequately performed because of the poor opacification of these pulmonary arterial segments. 2. No thoracic aortic aneurysm or dissection is seen. 3. Small hiatal hernia and hepatic steatosis are seen. 4. No other acute cardiopulmonary disease is seen. There is a small calcified granuloma and minimal oblique linear scar or strand of atelectasis on the left, as discussed above.
--- NOTE | 2020-03-07 15:15 | XRAY ---
Exam: CT of the cervical spine without IV contrast from 03/07/2020. CTDI: 66.53 mGy Comparison: None. Indication: 49-year-old female with right-sided neck and arm pain. Technique: Non-IV contrast axial images were obtained through the cervical spine. Reconstructed coronal and sagittal images were created and reviewed. Findings: I see no acute cervical spine fracture, traumatic AP subluxation, or prevertebral soft tissue swelling. The preodontoid space reveals some mild degenerative changes at its superior aspect. There is mild narrowing of the C5-C6 interspace height associated with moderate anterior and mild posterior vertebral endplate spurring indicating mild degenerative disc disease at this level. The other cervical interspaces are fairly well-maintained, although I note some minimal posterior lateral vertebral endplate spurring at C3-C4 and C6-C7. The AP diameter of the cervical canal appears to be mildly compromised at the C5-C6 and C6-C7 interspace levels which suggests some mild central canal stenosis. I do not see a definite disc herniation. However, there appears to be mild narrowing of the left C3-C4 neural foramen, marked narrowing of the left C5-C6 neural foramen, and minimal narrowing of the left C6-C7 neural foramen. There appears to be a small calcification adjacent to the posterior aspect of the inferior facet of C5 on the right. This appears to be an old finding. Some degenerative changes are seen affecting the uncovertebral joints at C3-C4 and C5-C6. The C1-C2 relationship appears unremarkable on the coronal images. No cervical ribs are seen. The visualized lung apices appear unremarkable. No abnormal cervical lymphadenopathy is seen. Impression: 1. No acute cervical spine fracture, AP subluxation, or prevertebral soft tissue swelling is seen. 2. Mild cervical spondylosis is seen, as discussed above. 3. There is some neural foraminal narrowing on the axial images, as discussed above. In addition, the AP dimension of the cervical canal at C5-C6 and C6-C7 appears relatively diminished suggesting some mild central canal stenosis at these levels.
[2020-03-07 17:20] VITALS: BP 135/49; PULSE 88
== END 2020-03-07 17:27 | disposition home or self-care (01) ==
LOC: ED 11:21
DX: M25.511 Pain in right shoulder (principal); R07.9 Chest pain, unspecified; M54.12 Radiculopathy, cervical region; D72.829 Elevated white blood cell count, unspecified; D47.3 Essential (hemorrhagic) thrombocythemia; K44.9 Diaphragmatic hernia without obstruction or gangrene; J84.10 Pulmonary fibrosis, unspecified; K76.0 Fatty (change of) liver, not elsewhere classified; M46.90 Unspecified inflammatory spondylopathy, site unspecified; Z79.899 Other long term (current) drug therapy; Z79.891 Long term (current) use of opiate analgesic
CPT/HCPCS: 36000; 36415; 71045; 71260; 72125; 80053; 80307; 81001; 82962; 83735; 83880; 84484; 85025; 85379; 87040; 93005; 93041; 94760; 96374; 96375; 99284; J1100; J1885; J2060; J2270; G0480